=== PATIENT | female | born 2000 | race Caucasian/White ===

== ENCOUNTER 2022-11-27 08:54 | Emergency (ER) | payer OTHER ==
[~2022-11-27] VITALS: Ht 165.1 cm; Wt 74.1 kg
[2022-11-27] MEDS ORDERED: MIDAZOLAM HCL 2 MG/2 ML VIAL IVP ONE (10:45)
[2022-11-27] MEDS ORDERED: MIDAZOLAM HCL 5 MG/ML VIAL IVP ONE (10:45)
[2022-11-27] MEDS ORDERED: FentaNYL CITRATE PF 100 MCG/2 ML VIAL IVP ONE ×2 (10:45)
[2022-11-27 11:01] VITALS: O2SAT 99
[2022-11-27 14:30] VITALS: BP 120/70; PULSE 70; RESP 15; TEMP 98.4
[2022-11-27] MEDS ORDERED: PERCT PO (14:33)
[2022-11-27] MEDS ORDERED: IBUP-1492 PO (14:34)
== END 2022-11-27 15:12 | disposition home or self-care (01) ==
LOC: EMS 08:54
DX: S53.104A Unspecified dislocation of right ulnohumeral joint, initial encounter (principal); S42.401A Unspecified fracture of lower end of right humerus, initial encounter for closed fracture; W18.39XA Other fall on same level, initial encounter; Y93.89 Activity, other specified; Y92.89 Other specified places as the place of occurrence of the external cause; Y99.8 Other external cause status
CPT/HCPCS: 99285; 24600; 73200; 73070; 73080; 99152; J3010; J2250